=== PATIENT | male | born 1975 | race Caucasian/White ===

== ENCOUNTER 2018-03-17 12:41 | Emergency (ER) | payer BC ==
[~2018-03-17] VITALS: Ht 167.6 cm; Wt 81.6 kg
--- OUTSIDE RECORDS SUMMARY | 2018-03-17 12:46 | XMS REPORT | Continuity of Care Document ---
Author Author [facility] Interface Address Unknown Phone Unavailable Problems Problem Status Onset Date Classification Date Reported Comments Source Final: Unspecified Polyarthropathy or Polyarthritis Involving Multiple Sites 05/17/2013 05/30/2013 KATH Griffith 508.9 - RESP COND: EXT Active 11/24/2012 KATH Griffith Final: LUMBAGO 05/30/2013 KATH Griffith Medications Medication Details Route Status Patient Instructions Ordering Provider Order Date Source Allergies, Adverse Reactions, Alerts Substance Category Reaction Severity Reaction type Status Date Reported Comments Source Immunizations Immunization Date Given Site Status Last Updated Comments Source Results Order Name Results Value Reference Range Date Interpretation Comments Source Chest 2 views Chest 2 views Chest x-ray 2 views INDICATION: Lymphadenitis COMPARISON: 11/24/2012 FINDINGS: Heart size and central vasculature are within normal limits. There is no effusion or focal pneumonia. No pneumothorax. No acute osseous pathology. IMPRESSION: No acute cardiopulmonary process. 09/10/2013 - - Read by: Katey Saunders MD Dictated Date/time: 09/10/13 14:49 Electronically Signed by: Katey Saunders MD 09/10/13 14:50 FINAL REPORT KATH Griffith Spine lumbar wo contrast MRI Spine lumbar wo contrast MRI Examination: Spine lumbar wo contrast MRI History: LUMBAGO DIAGNOSIS: 1. Focal disc protrusion or herniation at L5-S1 extending toward the left touching the left S1 root 2. Mild facet arthropathy at L5-S1 3. No other significant abnormality TECHNIQUE: Lumbar MRI was completed without contrast in axial and sagittal planes with multiple pulse parameters. DISCUSSION: Is exam is compared to plain films dated 11 May 2013 at which time the study demonstrated 5 lumbar type vertebral bodies with narrowing of the lumbosacral interspace associated with L5-S1 facet arthropathy. Bone and Marrow Assessment: No evidence of bone marrow destruction or edema Overall Disc Assessment: Mild disc desiccation at the lumbosacral level L1/2: No extradural disease L 2/3: No extradural disease L 3/4: No extradural disease L4/5: No extradural disease L5/S1: Disc space narrowing and disc desiccation with mild facet arthropathy. Focal central disc herniation (image 8, series 2) extending mildly toward the left, touching the left S1 root. (Image 7, series 5) No evidence of high-grade canal or foraminal stenosis Other: The sacroiliac joints appear intact. PAUL Waldrop Jr., MD Neuroradiology 05/26/2013 - - Read by: Rajeev Godinez Dictated Date/time: 05/27/13 09:07 Electronically Signed by: Rajeev Godinez MD 05/27/13 09:15 FINAL REPORT KATH Griffith Sacroiliac joints series Sacroiliac joints series Exam: Sacroiliac joint x-ray series Reason for Exam: Polyarthropathy Comparison Exam: None Discussion: No acute bony abnormalities are seen. No diastases seen of the sacroiliac joints. No suspicious osteoblastic or osteolytic lesions. Impression: 1. Unremarkable SI joint x-ray series 05/11/2013 - - Read by: Luis Dickerson Dictated Date/time: 05/11/13 17:24 Electronically Signed by: Luis Dickerson MD 05/11/13 17:24 FINAL REPORT KATH Griffith Foot 3 views Bilateral Foot 3 views Bilateral Exam: Right and left foot x-rays, 3 views each Reason for Exam: Polyarthropathy Comparison Exam: None Discussion: Right: No acute bony abnormalities. Joint spaces are preserved. No suspicious osteoblastic or osteolytic lesions. Left: No acute bony abnormalities. Joint spaces are preserved. No suspicious osteoblastic or osteolytic lesions. Impression: 1. Unremarkable x-rays of the right and left feet. 05/11/2013 - - Read by: Luis Dickerson Dictated Date/time: 05/11/13 17:26 Electronically Signed by: Luis Dickerson MD 05/11/13 17:28 FINAL REPORT KATH Griffith Knee 1-2 Views Bilateral Knee 1-2 Views Bilateral BILATERAL KNEE SERIES CLINICAL HISTORY: 716.59 COMPARISON IMAGING: None. FINDINGS: Four views of the knees were submitted for interpretation. Joint spaces appear preserved. There is no fracture or dislocation. Soft tissues are unremarkable. No obvious joint effusion or suspicious radiopaque foreign body. IMPRESSION: No significant abnormality. 05/11/2013 - - Read by: Kim Bardales Dictated Date/time: 05/11/13 17:12 Electronically Signed by: Kim Bardales DO 05/11/13 17:12 FINAL REPORT REMI Griffith Hand AP lateral oblique Bilateral Hand AP lateral oblique Bilateral Exam: Right and left hand x-rays, 3 views each Reason for Exam: Polyarthropathy Comparison Exam: None Discussion: Right: No acute bony abnormalities. Joint spaces are preserved. No suspicious osteoblastic or osteolytic lesions. Left: No acute bony abnormalities. Joint spaces are preserved. No suspicious osteoblastic or osteolytic lesions. Impression: 1. Unremarkable x-rays of the right and left hands. 05/11/2013 - - Read by: Luis Dickerson Dictated Date/time: 05/11/13 17:25 Electronically Signed by: Luis Dickerson MD 05/11/13 17:26 FINAL REPORT REMI Griffith Spine lumbar 2 or 3 views Spine lumbar 2 or 3 views Exam: Lumbar Spine X-ray, 2 views Reason for Exam: Polyarthropathy Comparison Exam: None Discussion: 5 non rib-bearing lumbar vertebral bodies are seen. Vertebral body heights are maintained. No spondylolisthesis. No suspicious osteoblastic or osteolytic lesions. Note that a lumbar spine x-ray cannot rule out ligamentous injuries or spinal cord abnormalities. No dilated loops of bowel within the visualized portions of the abdomen and pelvis. Impression: 1. Unremarkable lumbar spine x-ray. 05/11/2013 - - Read by: Luis Dickerson Dictated Date/time: 05/11/13 17:23 Electronically Signed by: Luis Dickerson MD 05/11/13 17:24 FINAL REPORT REMI Griffith Spine cervical 2 or 3 views Spine cervical 2 or 3 views Exam: Cervical spine x-ray, 2 views Reason for Exam: Neck pain Comparison Exam: None Discussion: On lateral view, the cervical spine is seen from the C1 vertebral body level down through the C7 vertebral body. The C7/T1 junction is not fully within field of view. Vertebral body heights are maintained. No spondylolisthesis. Anterior bridging osteophyte seen at the C6/C7 level. No suspicious osteoblastic or osteolytic lesions. Prevertebral soft tissue is within normal limits. Lateral masses of C1 and dens of C2 are intact. Please note that a cervical spine x-ray cannot rule out ligamentous injuries or spinal cord abnormalities. Visualized portions of the lung apices are unremarkable. Impression: 1. Vertebral body heights are maintained. Anterior bridging osteophyte seen at the C6/C7 level. 05/11/2013 - - Read by: Luis Dickerson Dictated Date/time: 05/11/13 17:22 Electronically Signed by: Luis Dickerson MD 05/11/13 17:23 FINAL REPORT [facility] Chest 2 views Chest 2 views EXAMINATION: Chest x-ray 2 views COMPARISON: NONE AVAILABLE COMMENTS: The heart and pulmonary vasculature are within normal limits. No focal consolidation or significant pleural fluid collection is appreciated. No suspicious osseous pathology. IMPRESSION: NO ACUTE CARDIOPULMONARY ABNORMALITY. 11/24/2012 - - Read by: Rigo Vu Dictated Date/time: 11/24/12 14:46 Electronically Signed by: Rigo Vu MD 11/24/12 14:46 FINAL REPORT [facility] Vital Signs Vital Sign Value Date Comments Source Encounters Location Location Details Encounter Type Encounter Number Reason For Visit Attending Provider ADM Date DC Date Status Source [facility] [place] [facility] [id number] _MAPID:[id number] Misty Barney 05/11/2013 05/12/2013 [facility] [place] [place] [facility] [id number] _MAPID:[id number] Misty Barney 05/26/2013 05/27/2013 [facility] [place] [facility] [place] [facility] [id number] Rajeev Lee 09/10/2013 09/11/2013 [facility] [place] Procedures Procedure Code Date Perfomer Comments Source
--- OUTSIDE RECORDS SUMMARY | 2018-03-17 12:46 | XMS REPORT | Summary of Care ---
Author Organization Unknown Address Unknown Phone Unavailable Encounter Dates Location Diagnoses Discharge Providers Disposition 05/26/2013 [facility] Outpatient Imaging - Home Misty Barney [facility] 05/26/[address] Reason for Visit 724.2 - LUMBAGO Problem List No data available for this section Allergies, Adverse Reactions, Alerts No data available for this section Medications No data available for this section Medications Administered During Your Visit No data available for this section Immunizations No data available for this section
--- OUTSIDE RECORDS SUMMARY | 2018-03-17 12:46 | XMS REPORT | Summary of Care ---
Author Organization Unknown Address Unknown Phone Unavailable Encounter HQ Morisr_laureen([facility]) [id number] Date(s): 09/10/13 - 09/10/13 [facility] Outpatient Imaging - [address] [address]- [place] Discharge Disposition: Home Physician Attending: Rajeev Lee MD Reason for Visit 289.3 - LYMPHADENITIS N Problem List No data available for this section Allergies, Adverse Reactions, Alerts No data available for this section Medications No data available for this section Medications Administered During Your Visit No data available for this section Immunizations No data available for this section
--- OUTSIDE RECORDS SUMMARY | 2018-03-17 12:46 | XMS REPORT | Summary of Care ---
Author Organization Unknown Address Unknown Phone Unavailable Encounter Dates Location Diagnoses Discharge Providers Disposition 05/11/2013 [facility] Outpatient Imaging - Final: Home Misty Barney - [place] Unspecified 05/11/2013 [address] Polyarthropathy [place], [place] [address]- , or [facility] Polyarthritis Involving Multiple Sites Final: LUMBAGO Reason for Visit 716.59 - POLYARTHRITIS N Problem List No data available for this section Allergies, Adverse Reactions, Alerts No data available for this section Medications No data available for this section Medications Administered During Your Visit No data available for this section Immunizations No data available for this section
[2018-03-17] MEDS ORDERED: SODIUM CHLORIDE 0.9% 1000ML 1,000 ML IV STA (12:55)
[2018-03-17] MEDS ORDERED: CYCLOBENZAPRINE5 MG (13:17)
[2018-03-17] MEDS ORDERED: SUDAFED 12-HOU120 MG (13:17)
[2018-03-17] MEDS ORDERED: PREDNISONE20 MG PO (13:17)
[2018-03-17] MEDS ORDERED: NAPROXEN250 MG PO (13:17)
--- NOTE | 2018-03-17 15:11 | Diagnostic Imaging Report ---
Examination: Single AP view of the chest. COMPARISON: None. INDICATION: Cough, sinus congestion IMPRESSION: 1. Lines and Tubes: None 2. Lungs are grossly clear. No consolidation or effusion. 3. Cardiomediastinal silhouette is normal. Pulmonary vasculature is normal. 4. No acute bony abnormalities. Signed by: Dr. North Ibrahim M.D. on 03/17/2018 3:07 PM
== END 2018-03-17 16:00 | disposition home or self-care (01) ==
LOC: FSED 12:41
DX: R05 Cough (principal); J01.00 Acute maxillary sinusitis, unspecified; J01.20 Acute ethmoidal sinusitis, unspecified; J01.10 Acute frontal sinusitis, unspecified; E86.0 Dehydration; I10 Essential (primary) hypertension
CPT/HCPCS: 71045; 80053; 82553; 84484; 85025; 93005; 99284; J7030

== ENCOUNTER 2019-05-22 10:26 | Emergency (ER) | payer BC ==
[~2019-05-22] VITALS: Ht 177.8 cm; Wt 90.7 kg
[~2019-05-22 10:26] MED LIST: CYCLOBENZAPRINE5 MG PO; NAPROXEN250 MG PO; PREDNISONE20 MG PO; SUDAFED 12-HOU120 MG
--- OUTSIDE RECORDS SUMMARY | 2019-05-22 10:29 | XMS REPORT ---
Author Author [facility] Address Unknown Phone Unavailable Care Team Providers Care Restoration Ecologist Name Role Phone Tegan CRUMP Unavailable Unavailable Problems This patient has no known problems. Allergies, Adverse Reactions, Alerts This patient has no known allergies or adverse reactions. Medications This patient has no known medications. Results Test Description Test Time Test Comments Text Results Atomic Results Result Comments CXR 1 [facility] 2018-03-17 15:07:00 [place] [address] Patient Name: JOSE DE JESUS OWUSU MR #: [id number] : 1975 Age/Sex: 42/M Req #: [id number] Adm Physician: Ordered by: SELVIN CRUMP MD Report #: [id number] Location: [facility] Room/Bed: Procedure: [id number] HOPD/CXR 1 [facility] Exam Date: 03/17/18 Exam Time: 1417 REPORT STATUS: Signed Examination: Single AP view of the chest. COMPARISON: None. INDICATION: Cough, sinus congestion IMPRESSION: 1. Lines and Tubes: None 2. Lungs are grossly clear. No consolidation or effusion. 3. Cardiomediastinal silhouette is normal. Pulmonary vasculature is normal. 4. No acute bony abnormalities. Signed by: Dr. Marley Coronado M.D. on 03/17/2018 3:07 PM Dictated By: MARLEY CORONADO MD 150 Transcribed By: ERIC on 03/17/181506 COPY TO: SELVIN CRUMP MD
[2019-05-22] MEDS ORDERED: KETOROLAC TROMETHAMINE 30 MG/ML VIAL IV STA (11:02)
[2019-05-22] MEDS ORDERED: SODIUM CHLORIDE 0.9% 1000ML 1,000 ML IV SCH (11:15)
--- NOTE | 2019-05-22 11:41 | Diagnostic Imaging Report ---
EXAMINATION: CT of the abdomen and pelvis without contrast. TECHNIQUE: Spiral CT images of the abdomen and pelvis were performed from the lung bases to the lesser trochanters. No intravenous contrast was given per renal stone protocol. Coronal and sagittal reformatted images were obtained. COMPARISON: None. CLINICAL HISTORY:Left flank pain x5 days DISCUSSION: ABSENCE OF INTRAVENOUS CONTRAST DECREASES SENSITIVITY FOR DETECTION OF FOCAL LESIONS AND VASCULAR PATHOLOGY. ABDOMEN/PELVIS: LOWER THORAX: Lung bases are unremarkable. No pleural effusion. HEPATOBILIARY:Subcentimeter hypoattenuating lesion in hepatic segment 2 is too small to further characterize but likely to represent a small cyst. No additional focal hepatic lesion or intrahepatic biliary ductal dilatation. The gallbladder is unremarkable. SPLEEN: No splenomegaly or focal splenic lesion. PANCREAS: No focal masses or ductal dilatation. ADRENALS: No adrenal nodules. KIDNEYS/URETERS: 6 mm left ureterovesical junction calculus results in mild hydroureteronephrosis. Additional punctate nonobstructing calculi in the left upper pole (axial image 61) and the left lower pole (axial image 81 and 82). No right renal calculi. No gross renal mass lesion. PELVIC ORGANS/BLADDER: The urinary bladder is incompletely distended and suboptimally evaluated. Coarse prostatic calcifications. PERITONEUM/RETROPERITONEUM: No ascites or pneumoperitoneum. LYMPH NODES: No pelvic sidewall, retroperitoneal, or mesenteric lymphadenopathy. VESSELS: Limited evaluation in the absence of intravenous contrast. The abdominal aorta is non-aneurysmal. GI TRACT: The large bowel shows no distension or wall thickening. Appendix is normal. No small bowel dilatation to suggest obstruction. BONES AND SOFT TISSUES: Nonaggressive appearing mixed lucent and sclerotic fibro-osseous lesion in the posterior column of the left acetabulum extending inferiorly to the ischial tuberosity. Small bilateral fat-containing inguinal hernias. No additional focal soft tissue abnormalities. IMPRESSION: 6 mm left ureterovesical junction calculus results in mild hydroureteronephrosis. Additional nonobstructing left renal calculi as above. Signed by: Dr. Titi Ramires M.D. on 05/22/2019 11:38 AM
[2019-05-22] MEDS ORDERED: KETOROLAC TROME10 MG PO (11:43)
[2019-05-22] MEDS ORDERED: FLOMAX0.4 MG PO (11:44)
[2019-05-22] MEDS ORDERED: PHENAZOPYRIDIN100 MG PO (11:45)
[2019-05-22] MEDS ORDERED: TYLENOL WITH C1 EACH PO (11:48)
[2019-05-22 11:57] VITALS: BP 142/89
[2019-05-22] MEDS ORDERED: CIPRO500 MG PO (12:12)
== END 2019-05-22 12:24 | disposition home or self-care (01) ==
LOC: FSED 10:26
DX: R10.32 Left lower quadrant pain (principal); M54.5 Low back pain; N20.2 Calculus of kidney with calculus of ureter; M06.9 Rheumatoid arthritis, unspecified
CPT/HCPCS: 74176; 80053; 81003; 85025; 99283; J1885; J7030

== ENCOUNTER 2019-05-22 21:48 | Inpatient (IN) | payer BC ==
[~2019-05-22] VITALS: Ht 177.8 cm; Wt 90.7 kg
[~2019-05-22 21:48] MED LIST changes: +CIPRO500 MG PO; +FLOMAX0.4 MG PO; +KETOROLAC TROME10 MG PO; +PHENAZOPYRIDIN100 MG PO; +TYLENOL WITH C1 EACH PO
[2019-05-22] MEDS ORDERED: MORPHINE SULFATE INJ 4 MG/ML INJ 1ML IV PRN (22:30)
[2019-05-23] MEDS: ONDANSETRON HCL INJ 2MG/ML 2ML 2 MG/ML VIAL IV PRN ×2 (00:01→15:18)
[2019-05-23] MEDS: SODIUM CHLORIDE 0.9% 1000ML 1,000 ML IV SCH ×4 (00:01→21:30)
[2019-05-23 00:50] LABS: INR 0.88; PROTHROMBIN TIME 12.5 seconds (11.9-14.5)
[2019-05-23] MEDS ORDERED: KETOROLAC TROMETHAMINE 30 MG/ML VIAL IM PRN (01:45)
[2019-05-23] MEDS: FENTANYL CITRATE/PF 100MCG/2 ML INJ IV PRN ×3 (01:57→12:24)
--- NOTE | 2019-05-23 02:22 | Diagnostic Imaging Report ---
EXAM: Abdomen Radiograph 1 View INDICATION: ^KIDNEY STONES/ FLANK PAIN COMPARISON: Abdominal CT 05/22/2019 FINDINGS: No abnormalities in the lower chest. No lines or tubes. Normal volume of stool in the colon. No dilated loops of small bowel. Unchanged 1 cm calculus at the left ureterovesicular junction. Right pelvic phleboliths.. No pneumoperitoneum. No acute osseous abnormality. Mild degenerative changes in the lumbar spine and pelvis. IMPRESSION: Unchanged 1 cm calculus at the left ureterovesicular junction. Signed by: Tad Johnston DO on 05/23/2019 2:19 AM
[2019-05-23] MEDS: KETOROLAC TROMETHAMINE 30 MG/ML VIAL IV PRN ×2 (03:00→10:13)
[2019-05-23 05:34] LABS: BASOPHILS # (AUTO) 0.1 (0.0-0.1); BASOPHILS % 0.3 % (0.0-1.0); EOSINOPHILS # (AUTO) 0.1 (0.0-0.4); EOSINOPHILS % 0.5 % (0.0-6.0); HEMATOCRIT 43.6 % (38.2-49.6); HEMOGLOBIN 15.1 g/dL (14.0-18.0); LYMPHOCYTES # (AUTO) 1.1 (1.0-3.2); LYMPHOCYTES % 7.2 % (18.0-39.1); MEAN CORPUSCULAR HEMOGLOBIN 30.3 pg (28-32); MEAN CORPUSCULAR HGB CONC 34.6 g/dL (31-35); MEAN CORPUSCULAR VOLUME 87.4 fL (81-99); MONOCYTES # (AUTO) 1.2 (0.2-0.8); MONOCYTES % 7.9 % (4.4-11.3); NEUTROPHILS # (AUTO) 12.8 (2.1-6.9); NEUTROPHILS % 83.6 % (38.7-80.0); PLATELET COUNT 266 x10e3/uL (140-360); RED BLOOD COUNT 4.99 x10e6/uL (4.3-5.7); RED CELL DISTRIBUTION WIDTH 12.2 % (11.7-14.4)
[2019-05-23 05:51] LABS: CLARITY,URINE CLEAR (CLEAR); COLOR,URINE YELLOW (YELLOW)
[2019-05-23 05:52] LABS: BILIRUBIN,URINE NEGATIVE (NEGATIVE); KETONES,URINE TRACE (NEGATIVE); LEUKOCYTE ESTERASE ,URINE NEGATIVE (NEGATIVE); NITRITE,URINE NEGATIVE (NEGATIVE); PROTEIN,URINE DIPSTICK NEGATIVE (NEGATIVE); URINE UROBILINOGEN 0.2 mg/dL (0.2 - 1)
[2019-05-23 05:53] LABS: ALANINE AMINOTRANSFERASE 27 IU/L (0-55); ALBUMIN 3.8 g/dL (3.5-5.0); ALBUMIN/GLOBULIN RATIO 1.4 (0.8-2.0); ALKALINE PHOSPHATASE 77 IU/L (40-150); BLOOD UREA NITROGEN 14 mg/dL (7-26); BUN/CREATININE RATIO 11 (6-25); CALCIUM 8.3 mg/dL (8.4-10.2); CARBON DIOXIDE 25 mmol/L (22-29); CHLORIDE 109 mmol/L (98-107); CREATININE, SERUM 1.25 mg/dL (0.72-1.25); EST GLOMERULAR FILTRATION RATE > 60 ML/MIN (60-); GLUCOSE 115 mg/dL (74-118); SODIUM 140 mmol/L (136-145)
[2019-05-23 06:11] LABS: BACTERIA,URINE RARE /HPF; EPITHELIAL CELLS,URINE FEW /LPF
[2019-05-23] MEDS: CEFTRIAXONE SOD 1 GM/NS 50 ML 50 ML IV SCH (06:30)
[2019-05-23] MEDS ORDERED: ACETAMINOPHEN 325 MG TAB PO PRN (07:15)
[2019-05-23] MEDS ORDERED: PHENAZOPYRIDINE HCL 100 MG TAB PO PRN (07:15)
[2019-05-23] MEDS: FAMOTIDINE 20 MG/2 ML VIAL IV SCH ×2 (10:09→17:45)
[2019-05-23] MEDS: TAMSULOSIN HCL 0.4 MG CAP PO SCH (10:09)
--- NOTE | 2019-05-23 12:21 | NUR ---
PT/FM UPSET OVER WAIT TIME. STATES DR COSTA HAS NOT COME TO SEE THEM OR EVAL. CHECKED WITH ORLIN IN PACU WHO SPOKE TO IGOR WHO STATES HE WILL SCHEDULE PT FOR TOMORROW FOR STENT PLACEMENT. FM/PT GIVEN UP DATE AND PER MD CHANGE TO REGULAR DIET AND NPO AFTER MIDNIGHT.
--- NOTE | 2019-05-23 14:38 | NUR ---
Nursing report called to Lilia CONTEH on Med-Surg 2. Pt to go to rm 208
[2019-05-23] MEDS ORDERED: HYDROMORPHONE 1MG/1ML INJ IV PRN (15:30)
[2019-05-23 16:00] VITALS: BP 142/100
[2019-05-23 20:00] VITALS: BP 145/96
[2019-05-23 21:56] VITALS: BP 145/96
[2019-05-24] VITALS (8 sets, daily range): BP systolic 118–150; BP diastolic 76–104
[2019-05-24 05:13] LABS: BASOPHILS # (AUTO) 0.1 (0.0-0.1); BASOPHILS % 0.6 % (0.0-1.0); EOSINOPHILS # (AUTO) 0.4 (0.0-0.4); EOSINOPHILS % 3.7 % (0.0-6.0); HEMATOCRIT 42.4 % (38.2-49.6); HEMOGLOBIN 14.4 g/dL (14.0-18.0); LYMPHOCYTES % 18.7 % (18.0-39.1); MEAN CORPUSCULAR HEMOGLOBIN 29.9 pg (28-32); MONOCYTES % 9.3 % (4.4-11.3); NEUTROPHILS % 67.2 % (38.7-80.0); PLATELET COUNT 243 x10e3/uL (140-360); RED BLOOD COUNT 4.82 x10e6/uL (4.3-5.7); RED CELL DISTRIBUTION WIDTH 12.2 % (11.7-14.4)
[2019-05-24 05:38] LABS: ANION GAP 7.8 mmol/L (8-16); BLOOD UREA NITROGEN 10 mg/dL (7-26); BUN/CREATININE RATIO 9 (6-25); CALCIUM 8.3 mg/dL (8.4-10.2); CARBON DIOXIDE 24 mmol/L (22-29); CHLORIDE 112 mmol/L (98-107); EST GLOMERULAR FILTRATION RATE > 60 ML/MIN (60-); GLUCOSE 99 mg/dL (74-118); MAGNESIUM 1.9 MG/DL (1.3-2.1); POTASSIUM 3.8 mmol/L (3.5-5.1); SODIUM 140 mmol/L (136-145)
[2019-05-24] MEDS: SODIUM CHLORIDE 0.9% 1000ML 1,000 ML IV SCH ×3 (05:46→23:49)
[2019-05-24] MEDS: CEFTRIAXONE SOD 1 GM/NS 50 ML 50 ML IV SCH (05:46)
--- NOTE | 2019-05-24 06:42 | NUR ---
patient is transferred to OR for surgery
--- NOTE | 2019-05-24 07:00 | NUR ---
SHIFT REPORT RECEIVED FROM RAGMAN RN. PT IS OFF UNIT FOR PROCEDURE AT THIS TIME.
[2019-05-24] MEDS ORDERED: IOPAMIDOL 300MG/ML 50ML INFUS..BTL IV ONE (07:06)
[2019-05-24] MEDS ORDERED: B&O 60MG R/S 60 MG SUPP PR ONE (07:06)
[2019-05-24] MEDS ORDERED: B&O 60MG R/S 60 MG SUPP PR PRN (08:15)
[2019-05-24] MEDS ORDERED: ACETAMINOPHEN/CODEINE 300MG - 30MG TAB PO PRN (08:15)
--- NOTE | 2019-05-24 08:30 | NUR ---
PT RECEIVED FROM PACU. AAOX4. DENIES NEEDS AT THIS TIME.
[2019-05-24] MEDS: FAMOTIDINE 20 MG/2 ML VIAL IV SCH ×2 (09:08→17:12)
[2019-05-24] MEDS: DOCUSATE SODIUM 100 MG CAP PO SCH ×2 (09:10→17:12)
[2019-05-24] MEDS: PHENAZOPYRIDINE HCL 100 MG TAB PO SCH ×3 (09:10→17:12)
[2019-05-24] MEDS: TAMSULOSIN HCL 0.4 MG CAP PO SCH (09:10)
[2019-05-24] MEDS: OXYBUTYNIN CHLORIDE 5 MG TAB PO SCH ×3 (09:10→21:41)
[2019-05-24] MEDS: ONDANSETRON HCL INJ 2MG/ML 2ML 2 MG/ML VIAL IV PRN (10:30)
[2019-05-24] MEDS ORDERED: SEVOFLURANE INHAL SOLN 250 ML PEN BTL ONE (13:51)
[2019-05-24] MEDS ORDERED: DEXAMETHASONE SOD PHOS INJ 4 MG/ML VIAL ONE (13:51)
[2019-05-24] MEDS ORDERED: PROPOFOL IV EMULSION 10 MG/ML 20 ML VIAL ONE (13:51)
[2019-05-24] MEDS ORDERED: ONDANSETRON HCL INJ 2MG/ML 2ML 2 MG/ML VIAL ONE (13:51)
[2019-05-24] MEDS ORDERED: LIDOCAINE HCL 2% LOCAL INJ 5 ML SDV VIAL INJ ONE (13:51)
[2019-05-24] MEDS ORDERED: MIDAZOLAM HCL 2 MG/2 ML VIAL ONE (18:17)
[2019-05-24] MEDS ORDERED: FENTANYL CITRATE/PF 100MCG/2 ML INJ ONE (18:17)
--- NOTE | 2019-05-24 19:00 | NUR ---
Received pt in bed with eyes open. Resp. even and unlabored. Skin warm and dry to touch. Denies any pain or discomfort at this time. Call light in reach. Bed in locked and low position.
--- NOTE | 2019-05-24 19:00 | NUR ---
BEDSIDE SHIFT REPORT GIVEN TO THE AIRPLANE RENTAL CLERK RN. PT DENIED FURTHER NEEDS.
[2019-05-24] MEDS: KETOROLAC TROMETHAMINE 30 MG/ML VIAL IV PRN (22:15)
[2019-05-25] VITALS (9 sets, daily range): BP systolic 121–179; BP diastolic 71–89
[2019-05-25 05:26] LABS: BASOPHILS % 0.2 % (0.0-1.0); EOSINOPHILS % 0.1 % (0.0-6.0); HEMATOCRIT 42.7 % (38.2-49.6); HEMOGLOBIN 14.5 g/dL (14.0-18.0); LYMPHOCYTES # (AUTO) 1.1 (1.0-3.2); MEAN CORPUSCULAR VOLUME 88.2 fL (81-99); MONOCYTES # (AUTO) 0.8 (0.2-0.8); MONOCYTES % 4.4 % (4.4-11.3); NEUTROPHILS # (AUTO) 15.7 (2.1-6.9); NEUTROPHILS % 88.6 % (38.7-80.0); PLATELET COUNT 274 x10e3/uL (140-360); RED BLOOD COUNT 4.84 x10e6/uL (4.3-5.7); RED CELL DISTRIBUTION WIDTH 11.9 % (11.7-14.4)
[2019-05-25 05:49] LABS: ANION GAP 11.1 mmol/L (8-16); BLOOD UREA NITROGEN 12 mg/dL (7-26); BUN/CREATININE RATIO 11 (6-25); CALCIUM 8.7 mg/dL (8.4-10.2); CARBON DIOXIDE 21 mmol/L (22-29); CHLORIDE 112 mmol/L (98-107); CREATININE, SERUM 1.08 mg/dL (0.72-1.25); EST GLOMERULAR FILTRATION RATE > 60 ML/MIN (60-); GLUCOSE 147 mg/dL (74-118); POTASSIUM 4.1 mmol/L (3.5-5.1); SODIUM 140 mmol/L (136-145)
[2019-05-25] MEDS: CEFTRIAXONE SOD 1 GM/NS 50 ML 50 ML IV SCH (05:54)
[2019-05-25] MEDS: KETOROLAC TROMETHAMINE 30 MG/ML VIAL IV PRN ×3 (06:04→23:10)
--- NOTE | 2019-05-25 07:00 | NUR ---
BEDSIDE SHIFT REPORT RECEIVED FROM THE RECREATION SUPERVISOR RN. EDUCATED PT ABOUT FALL PRECAUTIONS. PT VERBALIZED UNDERSTANDING. CALL LIGHT WITH IN EASY REACH. INSTRUCTED PT TO USE CALL LIGHT FOR ALL THE NEEDS. BED IS LOW AND LOCKED. SIDE RAILS X2. PT DENIES NEEDS AT THIS TIME.
[2019-05-25] MEDS: SODIUM CHLORIDE 0.9% 1000ML 1,000 ML IV SCH ×3 (08:42→22:18)
[2019-05-25] MEDS: PHENAZOPYRIDINE HCL 100 MG TAB PO SCH ×3 (08:47→17:01)
[2019-05-25] MEDS: TAMSULOSIN HCL 0.4 MG CAP PO SCH (08:47)
[2019-05-25] MEDS: OXYBUTYNIN CHLORIDE 5 MG TAB PO SCH ×2 (08:47→15:17)
[2019-05-25] MEDS: DOCUSATE SODIUM 100 MG CAP PO SCH ×2 (08:47→16:57)
[2019-05-25] MEDS: FAMOTIDINE 20 MG/2 ML VIAL IV SCH ×2 (08:49→16:57)
--- NOTE | 2019-05-25 11:40 | NUR ---
JUANA KEITA CABLE SWAGER AND INFORMED PT WBC 17, HR 109, BP 153/88.
--- NOTE | 2019-05-25 15:51 | NUR ---
JUANA KEITA CONSUMER MARKETING ANALYST AND INFORMED PT BP 179/89 HR 102.
--- NOTE | 2019-05-25 17:00 | NUR ---
BOSSMAN PATTON ETHANOL MAINTENANCE MECHANIC AT BEDSIDE. HOLD OXYBUTYNIN FOR THE DAY AND RESTART TOMORROW.
[2019-05-25] MEDS ORDERED: CYCLOBENZAPRINE HCL 10 MG TAB PO ONE (17:15)
[2019-05-25 18:08] LABS: BASOPHILS # (AUTO) 0.1 (0.0-0.1); BASOPHILS % 0.4 % (0.0-1.0); EOSINOPHILS # (AUTO) 0.1 (0.0-0.4); EOSINOPHILS % 0.7 % (0.0-6.0); HEMOGLOBIN 15.6 g/dL (14.0-18.0); LYMPHOCYTES # (AUTO) 1.6 (1.0-3.2); LYMPHOCYTES % 7.7 % (18.0-39.1); MEAN CORPUSCULAR HEMOGLOBIN 30.2 pg (28-32); MEAN CORPUSCULAR HGB CONC 34.7 g/dL (31-35); MEAN CORPUSCULAR VOLUME 87.2 fL (81-99); MONOCYTES # (AUTO) 0.9 (0.2-0.8); MONOCYTES % 4.6 % (4.4-11.3); NEUTROPHILS # (AUTO) 17.7 (2.1-6.9); NEUTROPHILS % 86.1 % (38.7-80.0); PLATELET COUNT 314 x10e3/uL (140-360); RED BLOOD COUNT 5.16 x10e6/uL (4.3-5.7); RED CELL DISTRIBUTION WIDTH 12.1 % (11.7-14.4)
--- NOTE | 2019-05-25 18:15 | NUR ---
JUANA PATTON NP AND INFORMED WBC 20.
--- NOTE | 2019-05-25 19:00 | NUR ---
BEDSIDE SHIFT REPORT GIVEN TO THE CAPACITOR ASSEMBLER RN. PT DENIED FURTHER NEEDS.
[2019-05-25 19:06] LABS: CLARITY,URINE SL CLOUDY (CLEAR)
[2019-05-25 19:07] LABS: BILIRUBIN,URINE NEGATIVE (NEGATIVE); COLOR,URINE AMBER (YELLOW); KETONES,URINE NEGATIVE (NEGATIVE); LEUKOCYTE ESTERASE ,URINE TRACE (NEGATIVE); NITRITE,URINE POSITIVE (NEGATIVE); PROTEIN,URINE DIPSTICK 2+ (NEGATIVE); URINE UROBILINOGEN 0.2 mg/dL (0.2 - 1)
[2019-05-25 19:16] LABS: BACTERIA,URINE MODERATE /HPF; RBC,URINE >50 /HPF (0-5); WBC,URINE (MAN) 0-5 /HPF (0-5)
--- NOTE | 2019-05-25 19:27 | NUR ---
Received bedside report from day nurse. Patient out of bed and ambulating around room, no s/s of distress at this time. States that he is going to take a shower. All safety measures in place. Family at bedside. Will continue to monitor.
[2019-05-25] MEDS ORDERED: CEFEPIME 1GM/NS 0.9% 50 ML 50 ML IV SCH (20:00)
[2019-05-25] MEDS: PIPER-TAZ 3.375 GM 50 ML IV SCH (21:06)
[2019-05-25] MEDS: ONDANSETRON HCL INJ 2MG/ML 2ML 2 MG/ML VIAL IV PRN (23:10)
[2019-05-26] VITALS: BP 155/95
--- NOTE | 2019-05-26 00:18 | NUR ---
Patient states that he would like a break from IV fluids, reports feeling anxious being connected to machine. Saline locked. No s/s of distress noted. Encouraged patient to drink plenty of fluids. Patient verbalized understanding. All safety measures in place. Will continue to monitor.
[2019-05-26] MEDS: PIPER-TAZ 3.375 GM 50 ML IV SCH ×2 (02:38→08:10)
--- NOTE | 2019-05-26 02:39 | NUR ---
IV fluids re-started with antibiotics. Patient denies further needs at this time.
[2019-05-26 04:00] VITALS: BP 128/80
[2019-05-26 05:58] LABS: BASOPHILS # (AUTO) 0.1 (0.0-0.1); BASOPHILS % 0.5 % (0.0-1.0); EOSINOPHILS # (AUTO) 0.4 (0.0-0.4); EOSINOPHILS % 2.4 % (0.0-6.0); HEMATOCRIT 40.7 % (38.2-49.6); HEMOGLOBIN 13.8 g/dL (14.0-18.0); LYMPHOCYTES # (AUTO) 2.2 (1.0-3.2); LYMPHOCYTES % 14.4 % (18.0-39.1); MEAN CORPUSCULAR HEMOGLOBIN 29.6 pg (28-32); MEAN CORPUSCULAR HGB CONC 33.9 g/dL (31-35); MEAN CORPUSCULAR VOLUME 87.2 fL (81-99); MONOCYTES # (AUTO) 0.9 (0.2-0.8); MONOCYTES % 6.2 % (4.4-11.3); NEUTROPHILS # (AUTO) 11.4 (2.1-6.9); NEUTROPHILS % 75.8 % (38.7-80.0); PLATELET COUNT 284 x10e3/uL (140-360); RED BLOOD COUNT 4.67 x10e6/uL (4.3-5.7); RED CELL DISTRIBUTION WIDTH 12.2 % (11.7-14.4)
[2019-05-26] MEDS ORDERED: CEFTRIAXONE SOD 2 GM/NS 100 ML 100 ML IV SCH (06:00)
[2019-05-26] MEDS: SODIUM CHLORIDE 0.9% 1000ML 1,000 ML IV SCH (06:18)
[2019-05-26 06:20] LABS: ANION GAP 10.8 mmol/L (8-16); BLOOD UREA NITROGEN 13 mg/dL (7-26); BUN/CREATININE RATIO 14 (6-25); CALCIUM 8.6 mg/dL (8.4-10.2); CARBON DIOXIDE 25 mmol/L (22-29); CHLORIDE 111 mmol/L (98-107); CREATININE, SERUM 0.94 mg/dL (0.72-1.25); EST GLOMERULAR FILTRATION RATE > 60 ML/MIN (60-); GLUCOSE 101 mg/dL (74-118); POTASSIUM 3.8 mmol/L (3.5-5.1); SODIUM 143 mmol/L (136-145)
--- NOTE | 2019-05-26 07:00 | NUR ---
RECEIVED PATIENT AWAKE RESTING IN BED. NO S/S OF DISTRESS. BED LOW, WHEELS LOCKED, SIDE RAILS X2. CALL LIGHT IN REACH WILL CONTINUE TO MONITOR PATIENT.
--- NOTE | 2019-05-26 07:00 | NUR ---
Bedside report given to day nurse. Patient awake and resting in bed, no s/s of distress at this time. All safety measures in place.
[2019-05-26] MEDS: OXYBUTYNIN CHLORIDE 5 MG TAB PO SCH (08:10)
[2019-05-26] MEDS: DOCUSATE SODIUM 100 MG CAP PO SCH (08:10)
[2019-05-26] MEDS: TAMSULOSIN HCL 0.4 MG CAP PO SCH (08:10)
[2019-05-26] MEDS: PHENAZOPYRIDINE HCL 100 MG TAB PO SCH (08:10)
[2019-05-26] MEDS: FAMOTIDINE 20 MG/2 ML VIAL IV SCH (08:10)
[2019-05-26 08:18] VITALS: BP 160/93
[2019-05-26 08:47] VITALS: BP 160/93
[2019-05-26] MEDS ORDERED: CEFTIN PO (10:42)
[2019-05-26] MEDS ORDERED: ULTRAM50 MG PO (10:43)
[2019-05-26] MEDS ORDERED: DITROPAN XL5 MG PO (10:43)
--- NOTE | 2019-05-26 10:55 | NUR ---
REMOVED PATIENTS IV. CATHETER TIP INTACT AND PRESSURE DRESSING APPLIED.
--- NOTE | 2019-05-26 11:04 | NUR ---
PATIENT DISCHARGED FROM FACILITY. PATIENT GATHERED ALL PERSONAL BELONGINGS, DISCHARGE INSTRUCTIONS, AND FOLLOW UP INFORMATION. PATIENT LEFT UNIT IN WHEELCHAIR AND WENT HOME VIA PRIVATE AUTO. NO S/S OF DISTRESS WHEN LEAVING FACILITY.
--- NOTE | 2019-05-27 01:39 | Discharge Summary ---
CONSULTING PHYSICIAN: Rick Salazar MD CHIEF COMPLAINT: Ureterolithiasis. PAST MEDICAL HISTORY: Ankylosing spondylitis. SURGICAL HISTORY: Sinus surgery, tonsillectomy, urethral surgery. HOSPITAL COURSE: This is a 43-year-old male who got admitted with complaints of left lower quadrant and left flank pain that began intermittently a few weeks ago. The patient had constant pain, who got admitted on 05/23/2019, where a Urology was consulted. The patient got evaluated by the urologist and had a ureteroscopy of the stent on 05/24/2019. He was given IV antibiotics of Rocephin for two days on 05/25/2019. His WBC was found to be elevated at 20,000, so changed antibiotic to IV Zosyn. No fever or chills was reported. Today on 05/26/2019, his white count has been improved, which is 14.9, afebrile. We will discharge him home on Ceftin 500 mg p.o. twice daily for 10 days. He will also have prescriptions for tramadol 50 mg as needed for pain management and Ditropan 5 mg three times a day. Advised the patient to follow up with Urology in one week and primary care physician in 1-2 weeks. DISCHARGE DIAGNOSIS: Status post ureteroscopy with stent on 05/24/2019. The patient upon discharge is stable. Dictated by Stacey Hunt NP MD JENI Stovall/MEGAN /[id number]
[2019-06-06] MEDS ORDERED: FENTANYL CITRATE/PF 100MCG/2 ML INJ ONE (19:05)
[2019-06-06] MEDS ORDERED: MIDAZOLAM HCL 2 MG/2 ML VIAL ONE (19:05)
--- NOTE | 2019-06-13 20:57 | Operative Report ---
DATE OF PROCEDURE: 05/24/2019 SURGEON: Rick Salazar MD PREOPERATIVE DIAGNOSES: 1. Left ureterolithiasis. 2. Microscopic hematuria. POSTOPERATIVE DIAGNOSES: 1. Left ureterolithiasis. 2. Microscopic hematuria. OPERATIONS PERFORMED: 1. Cystourethroscopy with bilateral ureteral catheterization and retrograde ureteropyelography (separate procedure performed for microhematuria). 2. Interpretation of retrograde ureteropyelography. 3. Supervision of fluoroscopy, no radiologist present. 4. Left ureteroscopy with stone fragmentation and extraction with insertion of stent (separate procedure performed for the stone). 5. Radiological services for supervision and interpretation of ureteroscopy. ANESTHESIA: General. COMPLICATIONS: None. CLINICAL SUMMARY: Yogi De La Torre is a 43-year-old man who has failed to pass the stone. He was brought to the operating room for the above procedures. He was aware of the risks of bleeding, infection, injury to adjacent structures, need for additional procedures, and elected to proceed. OPERATIVE PROCEDURE IN DETAIL: Informed consent was verified. Yogi De La Torre was properly identified, taken to the operating room, placed on the cystoscopy table in supine position. Anesthesia was uneventfully begun. The patient was then carefully and gently repositioned in the dorsal lithotomy position with all pressure points well padded. His genitalia were prepared and draped in usual sterile fashion. The cystoscope sheath with visual obturator in place was atraumatically inserted into the patient's urethra, was guided unremarkable urethra through the prostate bed, which was significant for an elevated median bar. We entered the patient's bladder where there were very mild trabeculations, but no suspicious lesions. Ureteral catheter was used to cannulate each ureter and retrograde ureteropyelograms were performed. A guidewire was then placed into the left ureter and guided below the patient's kidney. A semi-rigid ureteroscope was then placed alongside the guidewire up into the left ureter. We identified the stone. The stone was grasped with a 4-wire flat wire basket. Upon closing the basket, we fragmented the stone into 3 fragments. We then made three passes with the ureteroscope to extract the 3 fragments, only fine sand remained. It was irrigated to loosen it from the mucosa so it can pass. With cystoscopic and fluoroscopic guidance, a left-sided indwelling ureteral stent was then placed. It was coiled in the patient's kidneys as well as the patient's bladder. The retaining suture was cut short. The patient's bladder was drained and cystoscope was withdrawn. A belladonna and opium suppository were placed revealing a 20 g prostate, that is smooth, non-fluctuant without any nodules. The patient was then uneventfully reversed from anesthesia and taken to recovery room in stable condition. There were no complications to the procedure. He tolerated the procedure well. We will proceed with ongoing urological followup. We will plan to return the patient back to the operating room in the near future to remove his stent, perform ureteroscopy, and hopefully render the patient stent-free and stone-free. Following that procedure, the patient needs ongoing urological followup for metabolic stone workup and hopefully a successful stone prevention regimen. MD BRITANY Jonas/MEGAN /[id number]
[2019-07-02] MEDS ORDERED: CYCLOBENZAPRINE5 MG PO (10:37)
[2019-07-02] MEDS ORDERED: NAPROXEN250 MG PO (10:37)
== END 2019-05-26 11:05 | disposition home or self-care (01) | DRG 854 ==
LOC: ER 21:48 → ERHOLD 22:25 → OBSVTOIN 05-23 13:45 → MED/SURG2 05-23 14:54
PROVIDERS: ADMIT Internal Medicine; ATTEND Internal Medicine
PROC: 0T768ZZ Dilation of Right Ureter, Via Natural or Artificial Opening Endoscopic (ICD-10-PCS; 2019-05-24)
PROC: BT141ZZ Fluoroscopy of Kidneys, Ureters and Bladder using Low Osmolar Contrast (ICD-10-PCS; 2019-05-24)
PROC: 0TC78ZZ Extirpation of Matter from Left Ureter, Via Natural or Artificial Opening Endoscopic (ICD-10-PCS; principal; 2019-05-24 08:00)
PROC: 0T778DZ Dilation of Left Ureter with Intraluminal Device, Via Natural or Artificial Opening Endoscopic (ICD-10-PCS; 2019-05-24 08:00)
DX: A41.9 Sepsis, unspecified organism (principal); N39.0 Urinary tract infection, site not specified; N13.2 Hydronephrosis with renal and ureteral calculous obstruction; R31.29 Other microscopic hematuria; Q54.9 Hypospadias, unspecified; I10 Essential (primary) hypertension
CPT/HCPCS: 36415; 74018; 74420; 80048; 80053; 81001; 83735; 83970; 84550; 85025; 85610; 86850; 86900; 87086; 88300; 93005; 96374; 99285; C1769; C2617; G0378; J0696; J1100; J1170; J1885; J2001; J2250; J2270; J2405; J2543; J3010; J7030

== ENCOUNTER → 2019-07-04 | Day surgery (SDC) | payer BC ==
[~2019-07-04] MED LIST changes: +ACETAMINOPHEN/CODEINE 300MG - 30MG TAB ONE; +B&O 60MG R/S 60 MG SUPP PR ONE; +CEFTIN PO; +CEFTRIAXONE SOD 1 GM/NS 50 ML 50 ML IV ONE; +DEXAMETHASONE SOD PHOS INJ 4 MG/ML VIAL ONE; +DITROPAN XL5 MG PO; +FENTANYL CITRATE/PF 100MCG/2 ML INJ ONE; +IOPAMIDOL 300MG/ML 50ML INFUS..BTL IV ONE; +LIDOCAINE HCL 2% LOCAL INJ 5 ML SDV VIAL INJ ONE; +MIDAZOLAM HCL 2 MG/2 ML VIAL ONE; +ONDANSETRON HCL INJ 2MG/ML 2ML 2 MG/ML VIAL ONE; +PROPOFOL IV EMULSION 10 MG/ML 20 ML VIAL ONE; +SEVOFLURANE INHAL SOLN 250 ML PEN BTL ONE; +ULTRAM50 MG PO
[2019-07-04 10:15] VITALS: BP 148/97
--- NOTE | 2019-07-04 11:20 | Operative Report ---
DATE OF PROCEDURE: 07/04/2019 SURGEON: Rick Salazar MD PREOPERATIVE DIAGNOSES: 1. Prior left ureterolithiasis. 2. Left nephrolithiasis. 3. Left indwelling ureteral stent. POSTOPERATIVE DIAGNOSES: 1. Prior left ureterolithiasis. 2. No evidence of left nephrolithiasis rather Jevon's plaques and mucosal calcifications present mostly in the lower pole calyx and also in a midpole calyx. 3. Left indwelling ureteral stent. OPERATIONS PERFORMED: 1. Cystourethroscopy with complicated removal of left indwelling ureteral stent (separate procedure performed for the diagnosis of stent on the separate scope.). 2. Left semi-rigid and flexible ureteropyeloscopy (separate procedure performed to evaluate the ureterolithiasis.). 3. Urological services with supervision and interpretation, no radiologist present. 4. Interpretation of retrograde ureteropyelography, no radiologist present. 5. Supervision of fluoroscopy, no radiologist present. ANESTHESIA: General. COMPLICATIONS: None. CLINICAL SUMMARY: Yogi De La Torre is a 43-year-old man, who had left obstructing ureterolithiasis with symptomatology. He underwent management of that stone with insertion of a stent for hydroureteronephrosis. The patient was noted to have a small stone on CT in the left kidney. He is brought for the above procedures. He is aware of the risks of bleeding, infection, injury to adjacent structures, need for additional procedures and elected to proceed. This procedure is not elective. It is relatively urgent procedure during the COVID-19 crisis. The patient has symptomatology and pain from his stent. He has intermittent hematuria as well as urgency and discomfort of his kidney with voiding. The patient also has a risk for making recurrent stones and the presence of a foreign body increases that risk. The patient is aware of the risk of leaving his home during the [id number] order for the coronavirus, but he believes that his risk oh coronavirus is far lower than the risk of kidney damage, recurring urolithiasis and persistent pain. OPERATIVE PROCEDURE IN DETAIL: Informed consent was verified. Yogi De La Torre was properly identified, taken to the operating room, placed on the cystoscopy table in supine position. Anesthesia was uneventfully begun. The patient was then carefully and gently repositioned in dorsal lithotomy position with all pressure points well padded. His genitalia were prepared and draped in usual sterile fashion. The cystoscope sheath with a visual obturator in place was atraumatically inserted into the patient's urethra, it was guided down the unremarkable urethra, passed through normal sphincteric region through the normal prostate bed into the patient's bladder where panendoscopy revealed no suspicious mucosal lesions, no tumors, no stones, no diverticula. There was a stent emerging from the left ureteral orifice. The guidewire was then placed alongside the stent and guided to the level of the patient's kidney, the stent was then grasped completely, removed, and discarded. A semi-rigid ureteroscope was then placed alongside the guidewire and guided into the patient's distal left ureter. It exhibited no stones, no strictures, no tumors. No suspicious lesions. Flexible ureteroscope was then placed over the guidewire and guided to the level of the patient's kidney. Panendoscopy with intrarenal collecting system revealed Jevon's plaques in the mid pole eleazar as well as in the lower pole eleazar, the lower pole also exhibited some calcifications with the mucosa around the papilla. There were no suspicious mucosal lesions. There were no stones that could be extracted. The ureter was re-examined in its entirety, exhibited no strictures, no stones, no suspicious lesions, no diverticula. Interpretation of retrograde ureteropyelography contrast was instilled in a retrograde fashion via the ureteroscope. There was mild fullness of the left upper collecting system, but there were no stones, no suspicious lesions, no obstruction. Unobstructed drainage was observed fluoroscopically. The patient's bladder was drained. Cystoscope was withdrawn. Belladonna and opium suppository were placed revealing a 20 g prostate that is smooth, non-fluctuant without any nodules. The patient was then uneventfully reversed from anesthesia and taken to recovery in stable condition. There were no complications to the procedure. The patient tolerated the procedure well. Explicit postop instructions were given. We will bring the patient back to the office in about a month to begin his metabolic stone workup. Rick MD [place]/MODL /[id number] cc: Rajeev Lee
== END | disposition home or self-care (01) ==
LOC: OR 07:09
PROVIDERS: ATTEND Urology
DX: N20.0 Calculus of kidney (principal); Z46.6 Encounter for fitting and adjustment of urinary device; N28.89 Other specified disorders of kidney and ureter
CPT/HCPCS: 52351; 74420; C1758; C1769; J0696; J1100; J2001; J2405; J2704; Q9967; J2250; J3010

== ENCOUNTER 2020-12-17 18:02 | Emergency (ER) | payer BC ==
[~2020-12-17] VITALS: Ht 177.8 cm; Wt 86.2 kg
[~2020-12-17 18:02] MED LIST changes: -ACETAMINOPHEN/CODEINE 300MG - 30MG TAB ONE; -B&O 60MG R/S 60 MG SUPP PR ONE; -CEFTRIAXONE SOD 1 GM/NS 50 ML 50 ML IV ONE; -DEXAMETHASONE SOD PHOS INJ 4 MG/ML VIAL ONE; -FENTANYL CITRATE/PF 100MCG/2 ML INJ ONE; -IOPAMIDOL 300MG/ML 50ML INFUS..BTL IV ONE; -LIDOCAINE HCL 2% LOCAL INJ 5 ML SDV VIAL INJ ONE; -MIDAZOLAM HCL 2 MG/2 ML VIAL ONE; -ONDANSETRON HCL INJ 2MG/ML 2ML 2 MG/ML VIAL ONE; -PROPOFOL IV EMULSION 10 MG/ML 20 ML VIAL ONE; -SEVOFLURANE INHAL SOLN 250 ML PEN BTL ONE
[2020-12-17] MEDS ORDERED: KETOROLAC TROMETHAMINE 60 MG/2 ML VIAL IM ONE (18:15)
[2020-12-17] MEDS ORDERED: KETOROLAC TROMETHAMINE 60 MG/2 ML VIAL ONE (18:39)
[2020-12-17] MEDS ORDERED: ACETAMINOPHEN-1 EAC4 PO (20:36)
[2020-12-17] MEDS ORDERED: CIPRO500 MG PO (20:36)
== END 2020-12-17 21:15 | disposition home or self-care (01) ==
LOC: FSED 18:13
DX: N50.811 Right testicular pain (principal); R10.9 Unspecified abdominal pain; M06.9 Rheumatoid arthritis, unspecified; Z87.442 Personal history of urinary calculi
CPT/HCPCS: 74176; 76870; 81003; 99283; J1885